=== PATIENT | female | born 1945 | race Caucasian/White ===

== ENCOUNTER → 2017-06-25 | Outpatient (CLI) | payer OTHER ==
[~2017-06-25] MED LIST: ACIDOPHILUS1 EAC2 PO; ALLERCLEAR D-21 EACH PO; ASPIRIN325 PO; HYDRALAZINE 2525 MG PO; HYDROCHLOROTHIA25 M1 PO; ISOSORBIDE DINI30 MG PO; LASIX 40 MG TAB40 M2 PO; LEVAQUIN 500 M500 M2 PO; LEVOTHYROXIN0.025 MG PO; LISINOPRIL20 MG PO; PRED FORTE 1% EY5 M1 OP; PRILOSEC40 MG PO; SERTRALINE HCL50 MG PO; TOPROL XL25 MG PO; XOPENEX HFA15 GM IH
== END ==
LOC: CAT 09:37
DX: R59.0 Localized enlarged lymph nodes (principal)

== ENCOUNTER → 2017-12-13 | Outpatient (CLI) | payer OTHER ==
[~2017-12-13] MED LIST changes: +AMOXICILLIN 50500 MG PO; -LEVOTHYROXIN0.025 MG PO; +NEURONTIN300 MG PO; +NORVASC10 MG PO; +RESTASIS1 EACH OPHTHALMIC; +SYNTHROID100 MC1 PO
== END ==
LOC: CAT 09:05
DX: R91.1 Solitary pulmonary nodule (principal); M48.54XA Collapsed vertebra, not elsewhere classified, thoracic region, initial encounter for fracture; E66.01 Morbid (severe) obesity due to excess calories; G47.33 Obstructive sleep apnea (adult) (pediatric); I27.20 Pulmonary hypertension, unspecified; I50.9 Heart failure, unspecified; I11.0 Hypertensive heart disease with heart failure

== ENCOUNTER → 2018-05-29 | Outpatient (CLI) | payer OTHER ==
[~2018-05-29] VITALS: Ht 165.1 cm; Wt 117.9 kg
[~2018-05-29] MED LIST changes: -AMOXICILLIN 50500 MG PO; -RESTASIS1 EACH OPHTHALMIC
[2018-05-29 13:19] VITALS: BP 177/66
== END ==
LOC: PAIN 06:28
DX: Z09 Encounter for follow-up examination after completed treatment for conditions other than malignant neoplasm (principal); I10 Essential (primary) hypertension; M06.9 Rheumatoid arthritis, unspecified; Z79.899 Other long term (current) drug therapy

== ENCOUNTER → 2018-08-26 | Outpatient (CLI) | payer OTHER ==
[~2018-08-26] MED LIST changes: +AMOXICILLIN 50500 MG PO; +RESTASIS1 EACH OPHTHALMIC
== END ==
LOC: CAT 09:51
DX: R91.8 Other nonspecific abnormal finding of lung field (principal); R59.0 Localized enlarged lymph nodes; R91.1 Solitary pulmonary nodule

== ENCOUNTER → 2018-10-18 | Outpatient (CLI) | payer OTHER ==
[~2018-10-18] VITALS: Ht 165.1 cm; Wt 115.7 kg
--- NOTE | ~2018-10-18 | HPC ---
[facility] [address] [address] PAIN MANAGEMENT CONSULTATION Name: VALDEZ OLMEDO Room #: REG FAIZAJovita Galeano#: [id number] Admission: 10/18/18 Attend Phys: Samuel Casarez MD Discharge: Date of : 49 Report #: [id number] THIS REPORT FOR: //name// CC: Man Casarez DATE OF SERVICE: 10/18/2018 FOLLOWUP COMPLAINT: "Some return of back pain but I had a really good time in [place]." HISTORY: The patient is a 73-year-old female who has been followed in the Pain Clinic. She has had some pain and discomfort in the mid back, in about the area of her bra line. She underwent an injection to the midline area at the last visit. She also had pain and discomfort, which radiated from her right side and radiated around in the T8-T7 distribution. She noticed that after the injection, things went quite well. She was able to go to her 3-week vacation in [place] and on the [place] with a very little pain and discomfort. Overall, things went relatively well. She has noted a slight return of pain and discomfort and would like to consider another injection prior to worsening of her condition. She rates the pain as 3-4/10 at this point. She has been treated with Medrol Dosepak. The patient states that she did have sinus infection. Antibiotic treatment was provided. After the completion of antibiotic, she was put on a steroid regimen. Overall, things are going well and she would like to proceed today with an injection in the mid back area as well as the right lateral T8-T7 dermatomal distribution. ALLERGIES: SULFA, BRAZIL NUTS. CURRENT MEDICATIONS: Amlodipine 10 mg, levothyroxine 100 mcg, Lasix 40 mg, lisinopril 20 mg, Zoloft 50 mg. PAIN CLINIC ASSESSMENT/PQRS: 1. The patient is not being treated for osteoarthritis or rheumatoid arthritis. 2. Height 5 feet 5 inches, weight 255 pounds, BMI is 42.2. 3. Vital signs: Blood pressure 186/88, pulse 66, respiratory rate 16, room air saturation is 99%. 4. Pain intensity: 3-4/10. 5. Fall risk: The patient has not fallen in the last 3 months. 6. Blood thinner: The patient is not on a blood thinning medication. 7. Hypertension: The patient is being treated for hypertension. 8. Opioids greater than 6 weeks: The patient is not on an opioid regimen. 9. Risk assessment tool: Low for opioid use. 10. Functional assessment tool: 35/70. 11. Recreational drug use: The patient denies use of recreational drugs. 12. Tobacco: The patient denies use of tobacco. [address] [address] PAIN MANAGEMENT CONSULTATION Name: VALDEZ OLMEDO [facility] [id number] Admission: 10/18/18 Attend Phys: Samuel Casarez MD Discharge: Date of : 49 Report #: [id number] 13. Alcohol: The patient denies frequent use of alcoholic beverages. PHYSICAL EXAMINATION: GENERAL: The patient is a well-developed, well-nourished, somewhat obese white female. She appears her stated age. She is alert and oriented x 3. Speech is fluent. HEENT: Normocephalic, atraumatic. Extraocular eye muscles intact. Sclerae nonicteric. Hearing is within normal limits. Mucous membranes are moist. NECK: Without adenopathy or JVD. Bruits not appreciated. HEART: Regular rate, S1 and S2. ABDOMEN: Slightly protuberant, without organomegaly. Bowel sounds present. MUSCULOSKELETAL: Without significant scoliosis, kyphosis, or lordosis. Upper extremity muscle strength is judged to be 5/5 for the major muscle groups in the upper extremities. Lower extremity muscle strength is judged to be 5/5 for the major muscle groups in the lower extremities. The patient has pain and discomfort in the area of the bra line, at approximately T7-T8. Palpation in the midline does reproduce her pain and discomfort. Palpation up to the lateral area at T7-T8 can reproduce pain and discomfort, which has been radiating around into the midline area as well. She has some pain and discomfort at approximately T10-T11. Palpation in this area also provided evidence of a trigger point. IMPRESSION: 1. Low back pain with intercostal neuritis on the right at T7-T8. 2. Myofascial pain at the T10-T11 midline area. Recommendations: We discussed treatment options with the patient. Risks and benefits of the procedure were discussed. The patient states that she is over her infection from sinusitis. She is on a steroid medication at this juncture. She has noted some increased pain and discomfort in the back area and would like to proceed with an injection. She noted very good relief with total resolution of 100% for about a month. This allowed her to go on vacation and enjoy her stay in the [facility]. 3. Hypertension. Recommendations: We discussed treatment options with the patient. We will proceed with another injection. Trigger point injections were discussed. Intercostal injection was discussed. Possible complications of the procedure could include infection, increased muscle soreness, no improvement in pain, worsening of pain, pneumothorax with placement of chest tubes to help improve breathing. The patient elects to proceed. PROCEDURE NOTE: The patient was placed in sitting position. She was perpendicular to the table. Her feet rested on a chair. The area at T7-T8 was sterilely prepped with a chlorhexidine solution. This was allowed to dry. Lower to and down below that area, the second trigger point area was noted and a 25-gauge needle was advanced into this area at the T10-T11 area. A total of 8 mL of 0.5% bupivacaine and 40 mg were injected at the T8-T7 area, the midline as well as a paraspinal injection which improved that trigger point area. The [address] [address] PAIN MANAGEMENT CONSULTATION Name: VALDEZ OLMEDO Room #: REG KELVIN Galeano#: [id number] Admission: 10/18/18 Attend Phys: Samuel Casarez MD Discharge: Date of : 49 Report #: [id number] second trigger point at the T11-T10 area was injected. The patient stated this reproduced her discomfort. Left and right paraspinus injection around that area was provided with a 25-gauge needle. This area had been sterilely prepped with a chlorhexidine solution. The right T8-T9 mid thoracic area was palpated. The patient states this reproduced the pain in the intercostal area, which she was experiencing. A 25-gauge needle was then advanced to the T7 rib. It was then walked off 1 mm below the costal margin. Aspiration was negative. A total of 8 mL of 0.5% bupivacaine and 40 mg triamcinolone was injected. The patient tolerated the procedure well. There were no complications. She remained in the Pain Clinic for an appropriate amount of time. She will follow up in the future as needed. We would like to thank you for letting us participate in her care. We hope she continues to improve. She will call us if she notes any problems or concerns about breathing. By: 1047 [id number] Samuel Casarez MD /nt
== END | disposition home or self-care (01) ==
LOC: PAIN 05:49
DX: M79.18 Myalgia, other site (principal); Z88.2 Allergy status to sulfonamides; Z88.8 Allergy status to other drugs, medicaments and biological substances; Z79.899 Other long term (current) drug therapy

== ENCOUNTER 2019-02-03 10:16 | Inpatient (IN) | payer OTHER ==
[~2019-02-03] VITALS: Ht 165.1 cm; Wt 119.3 kg
[2019-02-03 10:16] VITALS: BP 184/60
[~2019-02-03 10:16] MED LIST changes: -SYNTHROID100 MC1 PO; +SYNTHROID25 MC1 PO
[2019-02-03] MEDS ORDERED: BYSTOLIC20 MG PO (10:34)
[2019-02-03 11:44] LABS: ABSOLUTE NEUTROPHILS 14.3 thou/uL (1.4-8.2); BASOPHILS 0.4 % (0.0-2.0); EOSINOPHILS 1.1 % (0.0-3.0); HEMATOCRIT 39.4 % (37.0-47.0); HEMOGLOBIN 13.8 gm/dL (12.0-15.0); LYMPHOCYTES 8.9 % (24.0-44.0); MCH 32.3 pg (26.0-34.0); MCHC 34.9 g/dL (28.0-37.0); MCV 92.6 fL (80.0-100.0); MONOCYTES 6.2 % (1.0-8.0); PLATELET COUNT 288 thou/uL (150-400); POLYS 83.4 % (36.0-66.0); RBC 4.25 mil/uL (4.20-5.00); RDW 13.3 % (10.5-14.5); WBC 17.2 thou/uL (4.0-11.0)
[2019-02-03 11:55] LABS: BE(vivo) 2.1 mmol/L (-2 to +3); HCO3 24.4 mmol/L (22.0-26.0); PCO2 31.4 mmHg (35.0-45.0); PO2 61.6 mmHg (80.0-100.0); pH 7.508 (7.360-7.450); sO2 93.9 % (92.0-98.0)
[2019-02-03 12:54] LABS: ALBUMIN 3.3 g/dL (3.4-5.0); ANION GAP 12 mmol/L (7-16); BUN 12 mg/dL (7-18); CALCIUM 8.9 mg/dL (8.5-10.1); CHLORIDE 101 mmol/L (98-107); CO2 28 mmol/L (21-32); CREATININE 0.8 mg/dL (0.6-1.0); GLUCOSE 131 mg/dL (74-106); MAGNESIUM 1.6 mg/dL (1.8-2.4); SGOT 18 U/L (15-37); SGPT 17 U/L (30-65); SODIUM 141 mmol/L (136-145); TOTAL BILIRUBIN 2.1 mg/dL (<0.1-1.0); TOTAL PROTEIN 7.6 g/dL (6.4-8.2); TROPONIN-I <0.06 ng/mL (<0.06)
[2019-02-03 12:56] LABS: POTASSIUM 2.6 mmol/L (3.5-5.1)
[2019-02-03 13:54] VITALS: BP 162/67
[2019-02-03] MEDS ORDERED: UNICOMPLEX M TA1 TA1 PO (13:55)
[2019-02-03] MEDS ORDERED: PROBIOTIC1 EAC1 PO (13:55)
[2019-02-03] MEDS ORDERED: GLUCOSAMINE HC500 MG PO (13:56)
[2019-02-03] MEDS ORDERED: PROGESTERONE TROCHE SUBLING (13:58)
[2019-02-03 13:59] VITALS: BP 155/80; BP 164/69
[2019-02-03] MEDS ORDERED: KEFLEX500 M1 PO (13:59)
[2019-02-03 14:23] VITALS: BP 178/48
--- NOTE | 2019-02-03 14:46 | EKG ---
[address] [address] ELECTROCARDIOGRAM REPORT Name: VALDEZ OLMEDO Room #: 360- ADM IN M.R.#: [id number] ������������������ Admission: 02/03/19 ������������������ Attend Phys: Nilay Lea MD Discharge: ������������������ Date of : 49 Report #: [id number] ����������������������������������������������������������������� [id number] THIS REPORT FOR: //name// [facility] ED Test Date: 2019-02-03 Test Time: 10:35:23 Pat Name: VALDEZ OLMEDO Department: Room: 360 Gender: F Kiln Stoker: LANE : 1945 Requested By: Karina Coker Order Number: [id number] MD: Alex Garcia Measurements Intervals Mclain Rate: 63 P: 39 WY: 189 QRS: 22 QRSD: 94 T: 57 QT: 556 QTc: 570 Interpretive Statements Sinus rhythm Borderline repolarization abnormality Compared to ECG 12/20/2002 07:56:17 Myocardial infarct finding no longer present Electronically Signed On 02-03-2019 14:46:46 CDT by Alex Garcia [email or web address] ��������������������������������������������� <ELECTRONICALLY SIGNED> ���������������������������������������� By: Alex Garcia MD ��������������������������������������������� 02/03/19 1446 34 Alex Garcia MD /VIRAL
--- NOTE | 2019-02-03 17:18 | NUR ---
NOTIFIED TO REPLACE USGPIV WITH A LARGER ACCESS FOR CT. DISCUSSED MIDLINE PLACEMENT WITH THE PATIENT AND SHE AGREED. A OVER THE WIRE PERFORMED USING STERILE TECHNIQUE. #22 PIV WAS REMOVED AND A #4F POWER INJECTABLE MIDLINE WAS PLACED. 15CM AND ADVANCED WITHOUT DIFFICULTY. LINE WITH EXCELLENT BLOOD RETURN. SECURED AND RELEASED FOR USE
--- NOTE | 2019-02-03 17:44 | NUR ---
Assumed care of Pt on arrival to unit at approx 1400. Pt alert and oriented x4, in mod resp distress with minimal exertion. currently on 4L NC - bilat crackles to auscultation. CT chest results pending. Pulm and cardiology consulted. Sinus on telemetry. one time dose lasix given per order. up w/ SBA to BR. pt progressing toward poc goals.
[2019-02-03 20:00] VITALS: BP 150/67
[2019-02-04 04:10] VITALS: BP 131/69
--- NOTE | 2019-02-04 05:18 | NUR ---
STARTED IVPB ANTIBIOTICS PER POC. PT WAS HAVING BOUTS OF INCONTINENCE AFTER LASIX WAS GIVEN. EXTERNAL FEMALE CATH WAS INITIATED, BUT PT DECIDED TO DISCONTINUE IT. RT STARTED PT ON CPAP FOR SLEEP APNEA AND PLACED CONTINUOS PULSE OX. WATCHED FOR 1 HOUR AND IT WAS DECIDED TO ADD 4 L OF OXYGEN TO CPAP. SAT LEVELS CAME UP TO MID TO HIGH 90'S. PT STILL DISPLAYING SOA WHEN AMBULATING TO BATHROOM.
[2019-02-04 07:35] VITALS: BP 152/74
--- NOTE | 2019-02-04 08:16 | H ---
[facility] [place] [address] HISTORY AND PHYSICAL Name: VALDEZ OLMEDO Room #: 360-P [facility] IN M.R.#: [id number] Admission: 02/03/19 ������������������ Attend Phys: Nilay Lea MD Discharge: ������������������ Date of : 49 Report #: [id number] THIS REPORT FOR: //name// CC: Man Lea DATE OF SERVICE: 02/03/2019 CHIEF COMPLAINT: Shortness of breath. HISTORY OF PRESENT ILLNESS: The patient is a 73-year-old female, who is admitted through the Emergency Room today with progressive shortness of breath and cough and congestion. She said for a number of days to weeks she has had productive cough and chest congestion. She said at times produces yellow to green mucus. She has not had any fever or chills. She was seen in the office last week and had additional blood pressure medicine added and also oral course of Keflex. However, in the last day or two, her symptoms are exacerbated to the point where she had trouble sleeping last night. She normally sleeps with a couple of pillows sitting upright, but she was having difficulty breathing and was taken to the Emergency Room. There, she was noted to have O2 sats around 75% on room air. She normally does not require home oxygen, but does wear CPAP for sleep apnea. She also reported last week weight gain with lower extremity edema. She said in the office she was weighed around 263, but here in the ER at 239. She did report increasing lower extremity edema last week and that is when she doubled her Lasix. She said this improved her edema, but did not change her breathing pattern or dyspnea symptoms. PAST MEDICAL HISTORY: Hypertension; obstructive sleep apnea, on CPAP; morbid obesity; history of acute diastolic congestive heart failure in 2016; history of pulmonary hypertension by echo. PAST SURGICAL HISTORY: She has had hysterectomy and breast biopsies. FAMILY HISTORY: Noncontributory. SOCIAL HISTORY: No chronic alcohol or tobacco use. She is , lives at home. ALLERGIES: SULFA, GABAPENTIN, and some food allergies. MEDICATIONS: Zoloft 50 mg; lisinopril 40 mg twice a day; Levoxyl 25 mcg; Bystolic 20 mg; Lasix 40 mg, she recently increased to 80 mg and amlodipine [address] [address] HISTORY AND PHYSICAL Name: VALDEZ OLMEDO Room #: [address] [place] [address] [place] ..#: [id number] Admission: 02/03/19 ������������������ Attend Phys: Nilay Lea MD Discharge: ������������������ Date of : 49 Report #: [id number] REVIEW OF SYSTEMS: She denies headache, chest pain, nausea, vomiting, diarrhea, constipation, dysuria, syncope. OBJECTIVE: VITAL SIGNS: Temperature 36.6, pulse 54, respirations 28, blood pressure 178/48, O2 sat 91-94% on 4 liters nasal cannula. GENERAL: She is awake and alert, in no distress. HEAD AND NECK: Unremarkable. LUNGS: Have some expiratory rhonchi in the right middle lobe posteriorly. HEART: Regular, no murmur. ABDOMEN: Obese, soft, normoactive bowel sounds. EXTREMITIES: Just trace edema. NEUROLOGIC: Cranial nerves intact. Speech is fluent. Motor strength 5/5 throughout. LAB REVIEW AND DIAGNOSTIC STUDIES: Potassium was 2.6, magnesium 1.6. Troponin negative. BNP was 2100. ABG had a pO2 of 61 on 3 liters nasal cannula. White count is 17 with mild left shift. Chest x-ray shows perihilar and upper lobe infiltrates. ASSESSMENT: 1. Community-acquired pneumonia. 2. Electrolyte imbalance. 3. Hypertension. 4. Obstructive sleep apnea, on CPAP. 5. Pulmonary hypertension. PLAN: Empiric antibiotic treatment has been ordered for presumptive pneumonia; however, she has a complex picture and there could be some degree of superimposed heart failure as well. However, given the productive cough and elevated white count, antibiotics will continue. I will ask the Pulmonary and Cardiology Service to see her as well; given the degree of hypoxia, should rule out pulmonary embolus and for now, Lovenox DVT prophylaxis has been ordered. ��������������������������������������������� <ELECTRONICALLY SIGNED> ���������������������������������������� By: Nilay Lea MD ��������������������������������������������� 02/04/19 0816 1444 1727 Nilay Lea MD /nt
--- NOTE | 2019-02-04 09:22 | 2DMMODE ---
[facility] [place] [address] 2 D/M-MODE ECHOCARDIOGRAM Name: VALDEZ OLMEDO Room #: 360-P [facility] IN ..#: [id number] ������������� Admission: 02/03/19 ������������� Attend Phys: Charisse Giraldo Discharge: ��� ������������� ��� Date of : 49 Date of Service: 02/04/19 0922 �� Report #: [id number] �������� ��������������������������������������������[id number] THIS REPORT FOR: //name// APPROVED REPORT Study performed: 02/04/2019 08:20:56 EXAM: Comprehensive 2D, Doppler, and color-flow Echocardiogram Patient Location: Echo lab Room #: 360 Status: routine BSA: 2.22 HR: 62 bpm BP: 152/74 mmHg Rhythm: NSR Other Information Study Quality: Adequate Technically limited study due to morbid obesity. Indications Dyspnea Chest Pain Pulmonary HTN, CHF. Echo Enhancing Agent Indication: Endocardial border delineation Agent(s) / Amount(s) Used: Optison 5 cc 2D Dimensions RVDd: 35.53 mm IVSd: 11.03 (7-11mm) LVOT Diam: 20.12 (18-24mm) LVDd: 48.50 mm PWd: 10.10 (7-11mm) LVDs: 33.46 (25-40mm) Aortic Root: 34.08 mm Volumes Left Atrial Volume (Systole) Single Plane 4CH: 56.53 mL Single Plane 2CH: 46.67 mL LA ESV Index: 24.00 mL/m2 Aortic Valve AoV Peak Blake.: 2.77 m/s [facility] [place] [address] 2 D/M-MODE ECHOCARDIOGRAM Name: VALDEZ OLMEDO Room #: 360-P [facility] IN .R.#: [id number] ������������� Admission: 02/03/19 ������������� Attend Phys: Charisse Giraldo Discharge: ��� ������������� ��� Date of : 49 Date of Service: 02/04/19 0922 �� Report #: [id number] �������� ��������������������������������������������[id number] AO Peak Gr.: 30.72 mmHg LVOT Max P.24 mmHg AO Mean Gr.: 16.13 mmHg AO V2 Mean: 1.91 m/s LVOT Max V: 1.68 m/s AO V2 VTI: 67.02 cm ISSAC Vmax: 1.92 cm2 Mitral Valve E/A Ratio: 1.4 MV Decel. Time: 159.40 ms MV E Max Blake.: 1.53 m/s MV A Blake.: 1.11 m/s MV PHT: 46.23 ms IVRT: 48.44 ms Pulmonary Valve PV Peak Blake.: 1.24 m/s PV Peak Gr.: 6.18 mmHg Pulmonary Vein P Vein S: 0.82 m/s P Vein A: 0.34 m/s P Vein D: 0.86 m/s P Vein A Dur.: 93.4 msec P Vein S/D Ratio: 0.95 Tricuspid Valve TR Peak Blake.: 3.36 m/s RAP Estimate: 5.00 mmHg TR Peak Gr.: 45.21 mmHg PA Pressure: 50.00 mmHg Left Ventricle The left ventricle is normal size. There is normal LV segmental wall motion. There is normal left ventricular wall thickness. Left ventricular systolic function is normal. LVEF is 60-65%. Right Ventricle The right ventricle is normal size. The right ventricular systolic function is normal. Atria The left atrium size is normal. The right atrium size is normal. Aortic Valve Aortic valve is mildly calcified, mildly stenotic. No aortic regurgitation is present. Calculated aortic valve area is 1.9cm2 with maximum pressure gradient of 31 mmHg and mean pressure gradient of 16 [place] [address] 2 D/M-MODE ECHOCARDIOGRAM Name: CM OLMEDOMONAE Mariscal Room #: 360-P [facility] IN ..#: [id number] ������������� Admission: 02/03/19 ������������� Attend Phys: Charisse Giraldo Discharge: ��� ������������� ��� Date of : 49 Date of Service: 02/04/19 0922 �� Report #: [id number] �������� ��������������������������������������������[id number] Mitral Valve The mitral valve is normal in structure. Mild mitral regurgitation. Tricuspid Valve The tricuspid valve is normal in structure. Mild tricuspid regurgitation. Estimated PAP is 50-55mmHg. Pulmonic Valve Pulmonic valve is not well visualized. Trace pulmonic regurgitation. Great Vessels The aortic root is normal in size. Ascending aorta is not well visualized. IVC is borderline dilated and collapses 50% with inspiration. Pericardium There is no pericardial effusion. <Conclusion> Left ventricular systolic function is normal. There is normal LV segmental wall motion. LVEF is 60-65%. Aortic valve is mildly calcified, mildly stenotic. No insufficiency Calculated aortic valve area is 1.9cm2 with maximum pressure gradient of 31 mmHg and mean pressure gradient of 16 mmHg. The mitral valve is normal in structure. Mild mitral regurgitation. Mild tricuspid regurgitation. Estimated pulmonary artery pressure of 50-55mmHg. There is no pericardial effusion. ��������������������������������������������� <ELECTRONICALLY SIGNED> ���������������������������������������� By: Gordon Sy MD, FACC ��������������������������������������������� 02/04/19921 1 1 Gordon Sy MD, FACC /INF
--- NOTE | 2019-02-04 10:14 | NUR ---
assessment: CM REVIEWED CHART AND MET WITH THE PATIENT AT THE BEDSIDE. PT IS ALERT AND ORIENTED X4. PT WAS ADMITTED WITH CAP/DYSPNEA/HYPOXIA. PT REPORTS SHE LIVES IN A HOUSE WITH HER . PT REPORTS SHE HAS ABOUT 6 STEPS WITH HANDRAILS TO ENTER THE HOME AND ANOTHER 6 STEPS WITH HANDRAILS TO HER BEDROOM ONCE INSIDE. PT REPORTS BEING FULLY INDEPENDENT WITH ADLS AND AMBULATION. PT REPORTS HAVING A CPAP AT HOME BUT NO OXYGEN. PT STATES SHE HAS NOT HAD HH IN THE PAST NOR BEEN TO A SNF/ACUTE REHAB. CM DISCUSSED ROLE. PT DOES NOT ANTICIPATE HAVING ANY NEEDS AT DISCHARGE. PULMONARY AND CARDIOLOGY WERE CONSULTED TO SEE PATIENT. CM WILL CONTINUE TO FOLLOW TO ASSIST NEEDED.
[2019-02-04 11:10] VITALS: BP 136/59
[2019-02-04 12:02] LABS: HEMATOCRIT 37.8 % (37.0-47.0); MCH 31.7 pg (26.0-34.0); MCHC 34.4 g/dL (28.0-37.0); MCV 92.1 fL (80.0-100.0); RBC 4.11 mil/uL (4.20-5.00); RDW 12.7 % (10.5-14.5); WBC 14.8 thou/uL (4.0-11.0)
[2019-02-04 12:10] LABS: CALCIUM 8.9 mg/dL (8.5-10.1); CREATININE 0.9 mg/dL (0.6-1.0)
[2019-02-04 12:14] LABS: POTASSIUM 2.6 mmol/L (3.5-5.1)
[2019-02-04 15:45] VITALS: BP 137/65
--- NOTE | 2019-02-04 17:35 | NUR ---
AAAOX4 VERY PLEASANT AND COOPERATIVE. NO C/O PAIN OR DISCOMFORT. APPETITE IMPROVING AT APPROX 50% OF MEALS. IV RIGHT UPPER MIDLINE SALINE LOCKED. UAL IN ROOM WITH SLOW STEADY GAIT. 02 AT 4L NASAL CANULA. HAD ECHO DONE TODAY. SPOUSE WAS INTO VISIT.
[2019-02-04 20:00] VITALS: BP 155/80
[2019-02-05 03:50] VITALS: BP 140/79
[2019-02-05 05:25] LABS: HEMATOCRIT 36.9 % (37.0-47.0); HEMOGLOBIN 12.5 gm/dL (12.0-15.0); MCH 31.3 pg (26.0-34.0); MCHC 33.8 g/dL (28.0-37.0); MCV 92.6 fL (80.0-100.0); RBC 3.98 mil/uL (4.20-5.00); RDW 12.9 % (10.5-14.5); WBC 23.1 thou/uL (4.0-11.0)
[2019-02-05 05:39] LABS: CALCIUM 8.9 mg/dL (8.5-10.1); CREATININE 0.9 mg/dL (0.6-1.0)
[2019-02-05 05:44] LABS: POTASSIUM 2.7 mmol/L (3.5-5.1)
[2019-02-05 07:21] VITALS: BP 152/67
--- NOTE | 2019-02-05 07:30 | NUR ---
Received pt. on 3L/NC then had CPAP on all night. She requested ambien to help her sleep and stated this am she slept well last night. Denies any pain. Afebrile. Up ad hailee in room with steady gait. Critical K level of 2.[address] Lea and order received. First dose of potassium given to pt. Day RN updated. Sputum and urine sample sent to lab. Will continue to monitor.
[2019-02-05 11:08] LABS: IgA 341 mg/dL (64-422); IgG 774 mg/dL (700-1600); IgM 133 mg/dL (26-217)
--- NOTE | 2019-02-05 11:38 | HC ---
[facility] [place] [address] CONSULTATION Name: SHARAVALDEZ D Room #: 360-P [facility] IN M.R.#: [id number] Admission: 02/03/19 ������������������ Attend Phys: Nilay Lea MD Discharge: ������������������ Date of : 49 Report #: [id number] THIS REPORT FOR: //name// CC: Man Lea Infectious Diseases Consultation REASON FOR CONSULTATION: I was asked to evaluate concerning bilateral pulmonary infiltrates. HISTORY OF PRESENT ILLNESS: The patient was a 73-year-old, presents with a 2-week history of progressive shortness of breath associated with minimally productive cough. Initially was seen in the outpatient clinic where she was hypertensive. She was given a beta johnny. She had significant amount of peripheral edema, which was also addressed. She continues to have cough and progressive shortness of breath. She was placed on cephalexin for 3 days without improvement. Presents to the emergency room where she has bilateral pulmonary infiltrates. CT scan of the chest confirms this. She does have a history of obstructive sleep apnea. In addition, she has an EF of 60% with mild aortic and mitral regurgitation. She has been followed by pulmonary medicine and cardiovascular medicine. She has had one episode of pneumonia several years ago. Does not have any previous history of HIV or risk factors, chronic bronchitis. She has had no ischemic heart disease noted. She has had no travel outside the [place]. No other known exposures. She is retired and lives with her . She has had no respiratory issues. She has had no animal exposure. No other chemical exposure. REVIEW OF SYSTEMS: A 10-point review of systems was negative other than what is described above. ALLERGIES: SULFA, GABAPENTIN, BRAZIL NUTS. MEDICATIONS: As noted on MAR including ceftriaxone, azithromycin, Solu-Medrol. PAST MEDICAL HISTORY: Heart disease, hyperlipidemia, obesity, obstructive sleep apnea, gastroesophageal reflux, hypothyroidism, hysterectomy, score exploratory laparotomy. FAMILY HISTORY: Heart disease, diabetes, hypertension, thyroid disease. SOCIAL HISTORY: She is a past smoker, no significant alcohol intake. PHYSICAL EXAMINATION: VITAL SIGNS: She is afebrile. Maximum temperature was 100 degrees yesterday, heart rate 62 on 3 L of oxygen per nasal cannula, blood pressure 137/65. GENERAL: She was moderately obese. Skin was without rash or decubitus. No [address] [address] CONSULTATION Name: VALDEZ OLMEDO Room #: 360-[facility] IN M.R.#: [id number] Admission: 02/03/19 ������������������ Attend Phys: Nilay Lea MD Discharge: ������������������ Date of : 49 Report #: [id number] palpable adenopathy. HEENT: Eyes: Without scleral icterus or conjunctivitis. Mouth: Without mucositis. NECK: Supple, with no thyromegaly, JVD or mass. LUNGS: Posterior crackles with no consolidation. No rub. HEART: Regular, without murmur, gallop or rub. ABDOMEN: Soft, nontender, no hepatosplenomegaly or mass, trace peripheral edema, no cyanosis or clubbing. GENITAL AND RECTAL: Not performed. Cranial nerves intact. Strength in upper or lower extremities is normal. Mood normal. No sensory deficits noted. LABORATORY STUDIES: Influenza antigen negative. Creatinine 0.9, hemoglobin 13, WBC 14.8, platelet count 321,000. Sedimentation rate was 63. BNP 21,000. Lactate 3. IMAGING DATA: CT scan of the chest showed evidence of cardiomegaly along with bilateral pulmonary infiltrates, both ground glass and nodular in appearance. Bilateral pleural effusions. Mediastinal adenopathy and hilar adenopathy. Fatty infiltration of the liver. IMPRESSION: 1. A 73-year-old with bilateral pulmonary infiltrates, mediastinal hilar adenopathy, cardiomyopathy, mild, with evidence of bilateral pulmonary infiltrates, may be related to congestive heart failure versus pneumonitis. 2. Hypertension. 3. Obstructive sleep apnea. 4. Obesity. RECOMMENDATION: We will obtain workup for infectious etiology, as well as inflammatory causes and vasculitis. Treat for congestive heart failure. Continue antibiotic coverage with azithromycin, ceftriaxone, and Tamiflu pending further studies. I have discussed with pulmonary medicine. We will plan on bronchoscopy tomorrow for further evaluation. ��������������������������������������������� <ELECTRONICALLY SIGNED> ���������������������������������������� By: Bebeto Maria MD ��������������������������������������������� 02/05/19 1138 1746 [id number] Bebeto Maria MD /nt
[2019-02-05 11:44] VITALS: BP 148/72
--- NOTE | 2019-02-05 11:46 | NUR ---
care of pt assumed this am @ ~0700. pt awake and off her cpap (noc use only) and on 3lt nc. pt npo for anticipated bronchoscopy @ 1400 today. pt had am meds w/ sips of water. pt denies co pain, soa and no n/v/d today. pt up ad hailee w/ a steady, balanced and coordinated gait. iv access to rue midline. potassium replaced today. cardiac care rn at consulting w/ pt this am. report called to pre-op rn for bronchoscopy. pt denies a cough this am.
[2019-02-05 15:55] LABS: CLARITY CLOUDY; COLOR DARK PINK; SOURCE BRONCH RML; TOTAL VOLUME 10 mL
[2019-02-05 16:09] LABS: HIV ANTIBODY Non Reactive (Non Reactive)
[2019-02-05 16:10] LABS: BF NUCLEATED CELLS 336; BF RBC 16192
[2019-02-05 16:43] VITALS: BP 136/59
[2019-02-05 17:04] LABS: BF MACROPHAGE 48; BF NEUTROPHILS 40
[2019-02-05 19:33] VITALS: BP 138/59
[2019-02-06 04:11] VITALS: BP 144/65
[2019-02-06 07:25] LABS: HEMATOCRIT 34.3 % (37.0-47.0); HEMOGLOBIN 11.5 gm/dL (12.0-15.0); MCH 31.3 pg (26.0-34.0); MCHC 33.4 g/dL (28.0-37.0); MCV 93.5 fL (80.0-100.0); RBC 3.67 mil/uL (4.20-5.00); RDW 13.3 % (10.5-14.5); WBC 18.8 thou/uL (4.0-11.0)
[2019-02-06 07:35] LABS: CALCIUM 8.9 mg/dL (8.5-10.1); CREATININE 0.8 mg/dL (0.6-1.0); POTASSIUM 3.8 mmol/L (3.5-5.1)
[2019-02-06 07:49] VITALS: BP 149/72
--- NOTE | 2019-02-06 07:49 | NUR ---
Pt. requested sleep med last night. She stated this am she slept better. O2 at 3L/NC then CPAP at HS. She still gets short of breath with exertion. Denies being in pain. Afebrile. Up ad hailee in room with steady gait. Making progress towards care plan goals.
--- NOTE | 2019-02-06 09:12 | NUR ---
Nutrition: Pt admitted for CAP, seen for BMI 43.8 = class III obesity. Appetite is okay with >75% intake. UBW around 250 lbs, admission wt 263 lbs. Edema present. Wt stable since 2016 per EMR. BG 145-214. No hx of DM, may be due to methylprednisolone. On Lispro. Answered questions about heart healthy/low sodium diet. Low nutrition risk.
[2019-02-06 11:55] VITALS: BP 135/56
--- NOTE | 2019-02-06 13:29 | NUR ---
Recieved care of patient at 0700. Alert and oriented x4. No complaints of pain or discomfort. Complaints of diarrhea and was told to inform nurse of next BM for inspection. On 3L O2/NC and CPAP at HS. Does not use O2 at home. Does use CPAP at home. Up ad hailee in room with steady, balanced gait. Short of breath with exertion. Vital signs within normal limits. Placed on Contact precuations for Tamiflu treatment. Waiting for RVP results. Pt currently at bedside.
--- NOTE | 2019-02-06 14:06 | NUR ---
ON-GOING ASSESSMENT: PT IS SLOWLY PROGRESSING TOWARDS DISCHARGE GOALS. PT HAD BRONCH YESTERDAY AND IS STILL WHEEZING TODAY AND REQUIRING OXYGEN WHICH SHE DOES NOT HAVE ARRANGED AT HOME. PT REMAINS ON IV ANBX. CM WILL CONTINUE TO FOLLOW TO ASSIST NEEDED.
[2019-02-06 15:36] VITALS: BP 140/54
[2019-02-06 20:45] VITALS: BP 143/55
[2019-02-07 00:08] LABS: ANGIOTENSIN CONVERTNG ENZ < 15 U/L (14-82)
--- NOTE | 2019-02-07 05:04 | NUR ---
Pt. requested tylenol for mild headache due to coughing with good relief. She stated she slept well during the night. O2 at 3L/NC then CPAP all night while asleep. Droplet precaution maintained. Afebrile. Up ad hailee in room with steady gait. Progressing towards care plan goals.
[2019-02-07 05:31] VITALS: BP 151/68
[2019-02-07 07:16] LABS: HEMATOCRIT 34.2 % (37.0-47.0); HEMOGLOBIN 11.4 gm/dL (12.0-15.0); MCH 31.4 pg (26.0-34.0); MCHC 33.3 g/dL (28.0-37.0); MCV 94.5 fL (80.0-100.0); RBC 3.62 mil/uL (4.20-5.00); RDW 13.3 % (10.5-14.5); WBC 14.6 thou/uL (4.0-11.0)
[2019-02-07 07:23] LABS: CREATININE 0.8 mg/dL (0.6-1.0); POTASSIUM 3.8 mmol/L (3.5-5.1)
[2019-02-07 07:51] VITALS: BP 131/99
[2019-02-07 11:39] VITALS: BP 144/60
--- NOTE | 2019-02-07 12:54 | NUR ---
on-going assessment: cm reviewed CHART AND SPOKE WITH ATTENDING. PT IS SLOWLY PROGRESSING TOWARDS DISCHARGE GOALS. PT IS STILL WHEEZING AND REQUIRING OXYGEN WHICH SHE DOES NOT HAVE AT HOME. CM SPOKE WITH ATTENDING AND NO PLANS FOR WEEKEND DISCHARGE. CM WILL CONTINUE TO FOLLOW TO ASSIST NEEDED.
[2019-02-07 13:11] LABS: ANA INTERPRETATION Negative (Negative)
--- NOTE | 2019-02-07 15:26 | NUR ---
REFERRAL RECEIVED FOR ACUTE REHAB CONSULATION. PATIENT SEEN BY RAUDEL AGUILLON NP FOR DR. LEE. PATIENT DOES NOT MEET CRITERIA FOR ACUTE REHAB ADMISSION - TOO HIGH LEVEL. PATIENT SHOULD BE ABLE TO RETURN TO HOME WITH HOME HEALTH OR OUT PATIENT IF NEEDED. THANK YOU FOR THIS REFERRA.
[2019-02-07 15:28] VITALS: BP 149/61
[2019-02-07 17:09] LABS: GLOBULIN TOTAL 3.4 g/dL (2.2-3.9); M-SPIKE Not Observed g/dL (Not Observed)
[2019-02-07 18:10] LABS: ADENOVIRUS Negative (Negative); INFLUENZA A Negative (Negative); INFLUENZA B Negative (Negative); METAPNEUMOVIRUS Negative (Negative); PARAINFLUENZA 1 Negative (Negative); PARAINFLUENZA 2 Negative (Negative); PARAINFLUENZA 3 Negative (Negative); RHINOVIRUS Negative (Negative); RSV A Negative (Negative); RSV B Negative (Negative)
--- NOTE | 2019-02-07 18:49 | NUR ---
Assumed care of patient at 0700. Vitals have been stable. Maintaining oxygen saturations on 3L NC. Still SOB with exertion. Cpap at HS. Lasix given x1 today with good effect. Good urinary output. Remains in droplet isolation, as still receiving Tamiflu and pending RVP results. No complaints of pain today. Up ad hailee in room, steady gait. PT / OT ordered per Dr. Kelton Maria. Does not qualify for 5N rehab. Plan to stay throughout the weekend. at bedside today. Slowly progressing towards POC. Will continue to monitor.
[2019-02-07 20:00] VITALS: BP 144/43; BP 152/63
[2019-02-08 04:00] VITALS: BP 142/56
--- NOTE | 2019-02-08 05:26 | NUR ---
PATIENT IS PROGRESSING IN HER CARE PLAN. VITAL SIGNS STABLE WITH PATIENT HAVING NO COMPLAINTS OF PAIN OR NAUSEA. BREATHING STABLE ON NASAL CANNULA/CPAP EVIDENCED BY READINGS ON CONTINUOUS SATURATION MONITOR. PATIENT REMAINS ON ISOLATION TO RULE OUT INFLUENZA WITH NURSING STAFF AWAITING LAB RESULTS. UP AD LAB THROUGHOUT SHIFT INCIDENT FREE, PATIENT IS STRONG AND BALANCED WHEN AMBULATING. CONTINUE PLAN OF CARE.
[2019-02-08 08:14] VITALS: BP 146/51
[2019-02-08 11:30] VITALS: BP 141/53
[2019-02-08 15:32] VITALS: BP 129/63
--- NOTE | 2019-02-08 18:06 | NUR ---
ASSUMED PATIENT CARE AT 0700. A/O X4. AMBULATED IN ROOM. DENIES PAIN. PROGRESSING TOWARDS POC GOALS.
[2019-02-08 19:16] VITALS: BP 143/52
[2019-02-09 04:19] VITALS: BP 147/66
--- NOTE | 2019-02-09 06:07 | NUR ---
PATIENT IS PROGRESSING RAPIDLY IN CARE PLAN. VITAL SIGNS STABLE WITH PATIENT HAVING NO COMPLAINTS OF PAIN OR NAUSEA. BREATHING STABLE ON OXYGEN EVIDENCED BY READINGS ON CONTINUOUS SAT MONITOR AND SPOT OXYGENATION CHECKS. PATIENT TOLERATED CPAP FINE OVERNIGHT. FULLY ORIENTED, PATIENT IS ABLE TO CALL APPROPRIATELY FOR NEEDS AND PARTICIPATE IN CARE. UP AD LING THROUGHOUT SHIFT, PATIENT IS STRONG AND BALANCED WHEN WALKING. CONTINUE PLAN OF CARE.
[2019-02-09 07:31] VITALS: BP 187/79
[2019-02-09 11:22] VITALS: BP 178/76
--- NOTE | 2019-02-09 16:41 | NUR ---
CONT TO IMPROVE SIGNIFICANTLY TODAY. STILL NEEDING OXYGEN BUT ONLY A LITER. SHE IS DENIES PAIN. SHE IS ALERT. AMBULATED ABOUT FACILITY WITHOUT ANY DIFFICULTY. UP AD LING IN ROOM. CONT ON IV ABT AND NO ADVERSE EFFECTS NOTED. WILL CONT WITH PLAN OF CARE.
[2019-02-09 17:00] VITALS: BP 168/74
[2019-02-09 19:45] VITALS: BP 172/62
[2019-02-10 03:50] VITALS: BP 145/65
--- NOTE | 2019-02-10 05:04 | NUR ---
PATIENT IS PROGRESSING RAPIDLY IN HER CARE PLAN. VITAL SIGNS STABLE WITH PATIENT HAVING NO COMPLAINTS OF PAIN OR NAUSEA. BREATHING STABLE EVIDENCED BY READINGS ON CONTINUOUS SATURATION MONITOR AND SPOT OXYGENATION CHECKS. PATIENT REMAINS ON ONE LITER NASAL CANNULA. SHE WAS ABLE TO TOLERATE CPAP FOR MOST OF THE NIGHT. UP AD LING THROUGHOUT SHIFT WITHOUT INCIDENT, PATIENT APPEARS STRONG AND BALANCED WHEN AMBULATING. PATIENT IS ANXIOUS FOR POSSIBLE DISCHARGE SOON. CONTINUE PLAN OF CARE.
[2019-02-10 06:08] LABS: CALCIUM 8.9 mg/dL (8.5-10.1); CREATININE 0.8 mg/dL (0.6-1.0); MAGNESIUM 2.5 mg/dL (1.8-2.4); POTASSIUM 3.3 mmol/L (3.5-5.1)
[2019-02-10 07:36] VITALS: BP 150/53
--- NOTE | 2019-02-10 12:06 | PATH ---
[facility] [address] [place] [address] PATHOLOGY RPT PROCEDURE Name: VALDEZ OLMEDO Room #: 360-P ADM IN .R.#: [id number] ������������������ Admission: 02/03/19 ������������������ Date of : 49 Discharge: Report #: [id number] Path Case #: [id number] Note [facility] Accession Number: [id number] TESTS RESULT FLAG UNITS REF RANGE LAB Clinician Provided Cytology Information No. of containers..01 Other (Miscellaneous) Source: BAL RML DIAGNOSIS: BAL RML NEGATIVE FOR MALIGNANT CELLS. NORMAL BRONCHIAL CELLS AND MACROPHAGES ARE PRESENT. Pathologist ICD10: 02 A41.9 Signed out by: Arlyn Earl MD, Pathologist NPI- [id number] Performed by: 01 Jacqueline Granda, Seeing Eye Dog Trainer ([facility]) Gross description: 01 5ML, DARK PINK, CLOUDY /LCS FLAG LEGEND: L-Low Normal,H-High Normal,LL-Alert Low,HH-Alert High <-Panic Low,>-Panic High,A-Abnormal,AA-Critical Abnormal Performed at: [address] [place] [address] Junior Moore MD, [address] [address] Arlyn Earl MD, Specimen Comment: A courtesy copy of this report has been sent to Specimen Comment: [phone], , . Specimen Comment: Report sent to ,DR PLAZA / DR LOMAS Specimen Comment: A duplicate report has been generated due to demographic updates. Performed at: [address], [place], [place] [id number] MD Junior Moore MD Phone: [phone]
--- NOTE | 2019-02-10 15:32 | NUR ---
on-going assessment: cm reviewed chart. PT IS SLOWLY PROGRESSING TOWARDS DISCHARGE GOALS. PT IS BEING TESTED TO SEE IF SHE WILL NEED OXYGEN AT HOME. PLAN IS FOR PATIENT TO LIKELY DISCHARGE TOMORROW. CM WILL CONTINUE TO FOLLOW TO ASSIST NEEDED.
[2019-02-10 16:13] VITALS: BP 145/56
--- NOTE | 2019-02-10 18:31 | NUR ---
PATIENT TRANSFERED TO SENIOR SUITE AT THIS TIME. SHE IS ALERT ORIENTED X4. SHE DENIES PAIN. ON ROOM AIR AND SATS ARE GREATER THAN 94%. WILL SPEND THE NIGHT HERE ON CPAP ROOM AIR SATS MONITOR. WILL CONT WITH PLAN OF CARE.
[2019-02-10 20:07] VITALS: BP 159/75
--- NOTE | 2019-02-11 04:20 | NUR ---
Assumed pt care at 1900. Pt A/OX4,VSS.Denies pain on assessment. No c/o SOA,does have a non productive cough.Pt resting with CPAP in place nocturnal desat study on going and pt has had no problems desating so far. Pt is up ad hailee, did complete her shower independtly before going to bed. Has a midline on RUE,patent and flushes well with blood return noted. Resting quietly at this time no distress noted will continue to monitor pt.
[2019-02-11 08:00] VITALS: BP 166/76
[2019-02-11 08:08] VITALS: BP 159/75
[2019-02-11] MEDS ORDERED: CEFDINIR300 MG PO (09:54)
[2019-02-11] MEDS ORDERED: AZITHROMYCIN 2250 MG PO (09:55)
[2019-02-11] MEDS ORDERED: PREDNISONE 20 M20 MG PO (09:56)
[2019-02-11] MEDS ORDERED: POTASSIUM20 PO (10:00)
--- NOTE | 2019-02-11 11:11 | NUR ---
PATIENT CARE WAS ASSUMED AT 0715.PATIENT IS ALERT AND ORIENTED X4.PATIENT IS UP ABLIB.PT HAS NON PRODUCTIVE COUGH, ON ROOM AIR.PT USES CPAP AT NIGHT.STUDYS WERE DONE TO SEE IF O2 IS NEED IN CPAP WHILE PATIENT IS SLEEPING.PT HAS NO COMPLAINS OF PAIN AT THIS TIME.IV MIDLINE IS INTACT AND SALINE LOCKED.PT HAS EDEMA IN BOTH LEGS, THAT IS A 1 PLUS PITTING.CALL LIGHT,PHONE, AND PERSONAL BELONGINGS ARE WITHIN REACH.
[2019-02-11 11:32] VITALS: BP 166/76
--- NOTE | 2019-02-11 13:07 | NUR ---
GLASS EDGER FAXED TO [facility]- COPY OF SCRIPT FOR HOME OXYGEN, H AND P, FACE SHEET, PULMONARY CONSULT, AND REST/EX OMITRY.
--- NOTE | 2019-02-11 13:28 | NUR ---
DISCHARGE NOTE: BETZAIDA reviewed chart and spoke with nursing and attending physician. Rest/exercise oximetry completed. Pt does need 2L O2 with activity. SW notified [facility] liaison, who states they are unable to provide O2 to pt. Recommendation made to use another DME company. Clinical info and order faxed to [facility] by transit planner. BETZAIDA obtained script and faxed to [facility]. BETZAIDA notified [facility] liaison, who delivered portable tank to pt's room. Pt's family to provide transportation home. [facility]'s discharge summary. No additional SW needs identified at this time, but is available to assist should needs arise.
--- NOTE | 2019-02-11 14:56 | NUR ---
PATIENT WAS DISCHARGED TO GO HOME WITH SELF CARE.MIDLINE WAS TAKEN OUT.DISCHARGE PAPERS WERE GIVEN TO PATIENT WITH PRESCRIPTIONS, AND EDUCATION.TRANSPORTATION TOOK PATIENT OUT TO FAMILY CAR.PT HAS NO QUESTIONS AT THIS TIME.
--- NOTE | 2019-02-14 11:39 | D ---
[facility] [place] [address] DISCHARGE SUMMARY Name: SHARAVALDEZ D Room #: 225-P [facility] IN ..#: [id number] Admission: 02/03/19 ������������������ Attend Phys: Nilay Lea MD Discharge: 02/11/19 ������������������ Date of : 49 Report #: [id number] THIS REPORT FOR: //name// CC: Man Lea DATE OF SERVICE: 02/11/2019 FINAL DIAGNOSES: 1. Acute hypoxic respiratory failure. 2. Community-acquired pneumonia. 3. Acute lung injury. 4. Tracheobronchomalacia. 5. Hypertension. 6. Acute on chronic diastolic congestive heart failure. 7. Pulmonary hypertension. 8. Morbid obesity. 9. Obstructive sleep apnea. 10. Hypothyroidism. HOSPITAL COURSE: The patient was admitted with severe hypoxic respiratory failure with room air sats in the 70s. She required high flow oxygen and steroids, nebulized treatments and empiric antibiotics for community-acquired pneumonia. She was followed by the Cardiology, Pulmonary and ID services. She was treated for acute on chronic diastolic heart failure. Multiple cultures were obtained, which were all negative at the time of discharge. There were some viral cultures and bronchoscopy cultures were still pending at discharge. She had a CT that showed no PE, but there were some CT findings of possible idiopathic interstitial lung disease or possible acute lung injury due to infection. With medical treatment, she gradually improved and her oxygen requirements improved significantly. By the time of discharge, she was only requiring about 1 liter of oxygen. She had no other interval complication. DISPOSITION: She will be discharged to home with diet and activity as tolerated. Follow up with Dr. Maria and Dr. Becerra in 2 weeks. MEDICATIONS: Omnicef for 5 days, Zithromax for 5 days, prednisone 20 mg twice a day until she returns to the office, potassium 20 mEq b.i.d., Zoloft, lisinopril, Lasix 80 mg a day, Levoxyl, amlodipine, multivitamin, acidophilus. She is to come by the office for a BMP in 2 days. ��������������������������������������������� <ELECTRONICALLY SIGNED> ���������������������������������������� By: Nilay Lea MD ��������������������������������������������� 02/14/19 1139 1019 Nilay Lea MD /nt
== END 2019-02-11 14:52 | disposition home or self-care (01) | DRG 291 ==
LOC: ER 10:16 → 3W 13:31 → EROBS 13:31 → 3W 14:00 → SICU 02-10 19:53 → ENTRNSPT 02-11 14:05 → EDTRNSPTSTS 02-11 14:11 → SICU 02-11 14:52
PROVIDERS: Internal Medicine; Pediatrics; Physician Assistant; Specialist; ADMIT Internal Medicine Geriatric Medicine
PROC: 05HY33Z Insertion of Infusion Device into Upper Vein, Percutaneous Approach (ICD-10-PCS; principal; 2019-02-03)
PROC: 5A09357 Assistance with Respiratory Ventilation, Less than 24 Consecutive Hours, Continuous Positive Airway Pressure (ICD-10-PCS; 2019-02-05)
PROC: 0BJ08ZZ Inspection of Tracheobronchial Tree, Via Natural or Artificial Opening Endoscopic (ICD-10-PCS; 2019-02-05)
PROC: 0B9D8ZX Drainage of Right Middle Lung Lobe, Via Natural or Artificial Opening Endoscopic, Diagnostic (ICD-10-PCS; 2019-02-05)
PROC: 5A09357 Assistance with Respiratory Ventilation, Less than 24 Consecutive Hours, Continuous Positive Airway Pressure (ICD-10-PCS; 2019-02-06)
DX: I50.33 Acute on chronic diastolic (congestive) heart failure (principal); J18.9 Pneumonia, unspecified organism; J96.21 Acute and chronic respiratory failure with hypoxia; R65.20 Severe sepsis without septic shock; I42.9 Cardiomyopathy, unspecified; Z68.41 Body mass index [BMI] 40.0-44.9, adult; R65.10 Systemic inflammatory response syndrome (SIRS) of non-infectious origin without acute organ dysfunction; E87.6 Hypokalemia; E78.5 Hyperlipidemia, unspecified; G47.33 Obstructive sleep apnea (adult) (pediatric); K21.9 Gastro-esophageal reflux disease without esophagitis; E03.9 Hypothyroidism, unspecified; R59.0 Localized enlarged lymph nodes; E66.01 Morbid (severe) obesity due to excess calories; I27.20 Pulmonary hypertension, unspecified; E83.42 Hypomagnesemia; I11.0 Hypertensive heart disease with heart failure; T38.0X5A Adverse effect of glucocorticoids and synthetic analogues, initial encounter; D72.829 Elevated white blood cell count, unspecified; J98.09 Other diseases of bronchus, not elsewhere classified; Z90.710 Acquired absence of both cervix and uterus; Z88.2 Allergy status to sulfonamides; Z88.8 Allergy status to other drugs, medicaments and biological substances; Z91.018 Allergy to other foods; Z82.49 Family history of ischemic heart disease and other diseases of the circulatory system; Z83.3 Family history of diabetes mellitus; Z87.891 Personal history of nicotine dependence; Z83.49 Family history of other endocrine, nutritional and metabolic diseases
CPT/HCPCS: 10879; 15002; 27000; 62110; 62900; 70005

== ENCOUNTER → 2019-02-20 | Outpatient (CLI) | payer OTHER ==
[~2019-02-20] MED LIST changes: +AZITHROMYCIN 2250 MG PO; +BYSTOLIC20 MG PO; +CEFDINIR300 MG PO; +GLUCOSAMINE HC500 MG PO; +KEFLEX500 M1 PO; +POTASSIUM20 PO; +PREDNISONE 20 M20 M1 PO; +PREDNISONE 20 M20 MG PO; +PROBIOTIC1 EAC1 PO; +PROGESTERONE TROCHE SUBLING; +UNICOMPLEX M TA1 TA1 PO
--- NOTE | 2019-02-23 19:20 | SLE ---
[facility] [place] [address] POLYSOMNOGRAPHY STUDY Name: VALDEZ OLMEDO Room #: REG [facility]#: [id number] Admission: 02/20/19 ������������������ Attend Phys: Moises Verdugo MD Discharge: ������������������ Date of : 49 Report #: [id number] THIS REPORT FOR: //name// CC: Moises MURDOCK MD DATE OF SERVICE: 02/21/2019 ATTENDING PHYSICIAN: Dr. Harpreet Murdock. The patient is a 73-year-old who weighs 240 pounds with a BMI of 39.9. The patient has history of sleep apnea, for which she uses CPAP. However, due to recent hypersomnolence and under CPAP/BiPAP titration, study was requested by the patient's primary care physician. During the night study, the patient spent 451 minutes in bed and slept for 324 minutes with a sleep efficiency of 71%. Sleep latency was 24 minutes with a REM latency of 271 minutes. Overall, sleep architecture showed increased stage 1 and stage 2 sleep, normal N3 sleep and reduced REM sleep. EKG monitoring revealed a mean heart rate of 52 beats per minute with a maximum of 70 beats per minute, normal sinus rhythm, no sustained arrhythmias observed. PLMS were seen at an index of 17 per hour and 6.5 per hour caused EEG arousals. The patient was started on CPAP at a pressure of 14 cm of water and titrated up to 15 cm of water. However, due to intolerance to higher CPAP pressure and persistence of respiratory events, the patient was switched to BiPAP starting at 16/ and titrated up to . At the final pressure, the patient slept for 36.5 minutes. The patient had supine REM sleep. The patient had 8.5 minutes of REM sleep. The patient's AHI was reduced to 0 per hour and oxygen saturation remained above 93%. IMPRESSION: 1. Sleep apnea diagnosed previously. 2. Mild to moderate periodic limb movements of sleep. RECOMMENDATIONS: 1. BiPAP at completely eliminated the patient's sleep apnea and should be used on a nightly basis. 2. Follow up in 4-6 weeks to assess compliance with BiPAP and to document clinical improvement. 3. Weight loss is strongly advised. 4. 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 5. Cautioned regarding driving until symptoms of sleep apnea resolve with the [facility] [address] [place] [address] POLYSOMNOGRAPHY STUDY Name: VALDEZ OLMEDO Room #: REG [facility] [place]ylan#: [id number] Admission: 02/20/19 ������������������ Attend Phys: Moises Verdugo MD Discharge: ������������������ Date of : 49 Report #: [id number] use of BiPAP. 6. PLMS does not need to be treated unless the patient has symptoms of restless legs during the day. ��������������������������������������������� <ELECTRONICALLY SIGNED> ���������������������������������������� By: Moises Verdugo MD ��������������������������������������������� 02/23/19 1920 1714 1734 Moises Verdugo MD /aluren
== END ==
LOC: SLEEPLAB 10:17
DX: G47.33 Obstructive sleep apnea (adult) (pediatric) (principal); G47.61 Periodic limb movement disorder; Z68.39 Body mass index [BMI] 39.0-39.9, adult

== ENCOUNTER 2019-03-10 18:51 | Inpatient (IN) | payer OTHER ==
[~2019-03-10] VITALS: Ht 165.1 cm; Wt 111.6 kg
[2019-03-10 18:51] VITALS: BP 135/62
[~2019-03-10 18:51] MED LIST changes: -PREDNISONE 20 M20 M1 PO
[2019-03-10 19:26] LABS: HEMATOCRIT 44.3 % (37.0-47.0); HEMOGLOBIN 15.1 gm/dL (12.0-15.0); MCH 32.2 pg (26.0-34.0); MCV 94.7 fL (80.0-100.0); PLATELET COUNT 259 thou/uL (150-400); RBC 4.68 mil/uL (4.20-5.00); RDW 14.2 % (10.5-14.5); WBC 17.7 thou/uL (4.0-11.0)
[2019-03-10 19:32] LABS: ANION GAP 13 mmol/L (7-16); BUN 51 mg/dL (7-18); CALCIUM 9.8 mg/dL (8.5-10.1); CHLORIDE 99 mmol/L (98-107); CO2 22 mmol/L (21-32); CREATININE 1.6 mg/dL (0.6-1.0); GLUCOSE 170 mg/dL (74-106); POTASSIUM 5.4 mmol/L (3.5-5.1); SODIUM 134 mmol/L (136-145)
[2019-03-10 19:41] LABS: TROPONIN-I <0.06 ng/mL (<0.06)
[2019-03-10 19:52] LABS: URINE BILIRUBIN NEGATIVE (Negative); URINE BLOOD NEGATIVE (Negative); URINE CLARITY CLEAR; URINE COLOR YELLOW; URINE GLUCOSE-RANDOM* NEGATIVE (Negative); URINE KETONES NEGATIVE (Negative); URINE LEUKOCYTES-REFLEX NEGATIVE (Negative); URINE NITRITE-REFLEX NEGATIVE (Negative); URINE PROTEIN (DIPSTICK) NEGATIVE (Negative); URINE UROBILINOGEN 0.2 E.U./dl (0.2-1.0)
[2019-03-10 19:54] LABS: ABSOLUTE NEUTROPHILS 15.2 thou/uL (1.4-8.2); ANISOCYTOSIS 1+
[2019-03-10 21:08] VITALS: BP 135/62
[2019-03-10 21:39] VITALS: BP 136/70
[2019-03-10 22:17] VITALS: BP 161/79
[2019-03-11 04:53] VITALS: BP 111/65
--- NOTE | 2019-03-11 05:23 | NUR ---
Patient arrived to unit around 2200. Telemetry placed on patient. Dr. Man Maria called due to patient requesting to wear bipap as she wears it every night at home. Dr. Maria also asked if he wants to restart home meds, but said he will wait until the morning. Bipap order initiated and RT notified. Patient tolerated bipap well and slept through the night. Patient remains to have some fatigue, but walks well and is balanced/steady. Patient hasn't had a BM yet even though kayexelate was given in ER. Patient anxious for treatment to correct issues so she can go home soon as she was just admitted to the hospital about a month ago.
[2019-03-11 06:43] LABS: CALCIUM 8.9 mg/dL (8.5-10.1); CREATININE 1.1 mg/dL (0.6-1.0)
[2019-03-11 06:50] LABS: POTASSIUM 3.9 mmol/L (3.5-5.1)
[2019-03-11 08:20] VITALS: BP 140/75
--- NOTE | 2019-03-11 09:16 | EKG ---
[address] [place] [address] ELECTROCARDIOGRAM REPORT Name: VALDEZ OLMEDO Room #: 363-P ADM IN M.R.#: [id number] ������������������ Admission: 03/10/19 ������������������ Attend Phys: Charisse Ta Discharge: ������������������ Date of : 49 Report #: [id number] ����������������������������������������������������������������� [id number] THIS REPORT FOR: //name// [facility] ED Test Date: 2019-03-10 Test Time: 19:09:05 Pat Name: VALDEZ OLMEDO Department: Room: [facility] Gender: F Box Shook Patcher: : 1945 Requested By: Abhinav Berman Order Number: [id number] MD: Gordon Sy Measurements Intervals Harvey Rate: 80 P: 28 [place]: 160 QRS: 10 QRSD: 83 T: 55 QT: 355 QTc: 410 Interpretive Statements Sinus rhythm No significant abnormality Baseline wander in lead(s) V1,V5 Compared to ECG 02/03/2019 10:35:23 ST segment abnormality is no longer present Electronically Signed On 03-11-2019 9:16:02 CDT by Gordon Sy [email or web address] ��������������������������������������������� <ELECTRONICALLY SIGNED> ���������������������������������������� By: Gordon Sy MD, [facility] ��������������������������������������������� 03/11/19 0916 1909 1909 Gordon Sy MD, [facility] /EPI
[2019-03-11 12:15] VITALS: BP 134/67
--- NOTE | 2019-03-11 15:08 | NUR ---
INITIAL ASSESSMENT: Received consult for respiratory care-bipap needs. SW reviewed chart and spoke with nursing. Pt was admitted from home due to acute hyperkalemia. SW met with pt's spouse at bedside. Pt currently taking a shower. Introduced role of SW. Pt and spouse live at home. Prior to admission, pt was independent with ADLs. Pt does have home O2 in place provided by [facility]. Pt's spouse that pt checks her O2 and has not needed it on a continuous basis. Pt does have a bipap machine at home, that she just got last week. No hx of services or SNF/Rehab placement. PT eval ordered. Plan is for pt to discharge home when medically stable. SW is following to assist as needed with discharge planning.
[2019-03-11 16:00] VITALS: BP 127/67
--- NOTE | 2019-03-11 16:30 | NUR ---
ASSUMED CARE AT 0700, SHIFT ASSESSMENT DONE, MEDS GIVEN, VSS. DENIES ANY PAIN, NAUSEA, VOMITING. UP AD LING, RA. MEDINA ON TELE. TOOK A SHOWER THIS AFTERNOON. V FLUIDS DISCONTINUED. WILL CONTINUE TO ASSESS AND ASSIST WITH ADLs NEEDED.
[2019-03-11 20:25] VITALS: BP 129/69
[2019-03-12 05:07] VITALS: BP 126/70
[2019-03-12 05:37] LABS: CALCIUM 8.8 mg/dL (8.5-10.1); CREATININE 0.8 mg/dL (0.6-1.0)
[2019-03-12 05:45] LABS: POTASSIUM 4.5 mmol/L (3.5-5.1)
--- NOTE | 2019-03-12 06:25 | NUR ---
Pt. stated she slept better last night. Tolerating room air well then had BIPAP on while asleep. Up ad hailee in room with steady gait. Electrolytes WNL. Making progress towards care plan goals.
[2019-03-12 08:02] VITALS: BP 133/64
--- NOTE | 2019-03-12 11:05 | NUR ---
ASSUMED CARE AT 0700, SHIFT ASSESMENT DONE, MEDS GIVEN, VSS. DENIES PAIN, NAUSEA, VOMITING. UP AD LING. WILL CONTINUE TO ASSESS AND ASSIST WITH ADLs NEEDED.
[2019-03-12 11:27] VITALS: BP 126/64
--- NOTE | 2019-03-12 12:27 | H ---
[facility] [place] [address] HISTORY AND PHYSICAL Name: VALDEZ OLMEDO Room #: 363-P ADM IN M.R.#: [id number] Admission: 03/10/19 ������������������ Attend Phys: Charisse Ta Discharge: ������������������ Date of : 49 Report #: [id number] THIS REPORT FOR: //name// CC: Man Maria DATE OF SERVICE: 03/10/2019 CHIEF COMPLAINT: Weakness. HISTORY OF PRESENT ILLNESS: The patient is a 73-year-old female who presented to the Emergency Room with a 2-day history of weakness. She was hospitalized several weeks ago for about 10 days related to hypoxic respiratory failure. She was diagnosed and treated for pneumonia. There was some concern of an interstitial lung disease, but that workup continued as an outpatient without any definitive diagnosis. She initially was requiring high flow nasal cannula oxygen during that stay, but gradually weaned down to 1 liter by the time of discharge. She has been on high dose prednisone since discharge with a slow taper. She reports completing antibiotics several days to a week ago, but remains on prednisone 30 mg a day. Over the last 2 days, she has just felt very weak all over. She has had a hard time getting around her home. She does report feeling dizzy and lightheaded when she first gets up from bed. PAST MEDICAL HISTORY: Hypertension, lymphedema, morbid obesity, recent pneumonia with hypoxic respiratory failure. PAST SURGICAL HISTORY: She has had hysterectomy. FAMILY HISTORY: Noncontributory. SOCIAL HISTORY: No chronic alcohol or tobacco use. She is and lives at home. ALLERGIES: SULFA, GABAPENTIN, SOME FOOD INCLUDING NUTS. MEDICATIONS: Prednisone 30 mg, lisinopril 20 mg, Synthroid 25 mcg, Zoloft 50 mg, amlodipine 10 mg, Lasix 80 mg. REVIEW OF SYSTEMS: She denies headache, chest pain, shortness of breath, abdominal pain, nausea, vomiting, diarrhea, constipation. OBJECTIVE: VITAL SIGNS: Temperature 36.6, pulse 58, respirations 20, blood pressure 140/75, O2 sat 98% on room air. GENERAL: She is awake and alert, in no distress. HEAD AND NECK: Unremarkable. LUNGS: Clear. [facility] [address] [place] [address] HISTORY AND PHYSICAL Name: VALDEZ OLMEDO [place] Room #: 363-P [facility] IN [facility]#: [id number] Admission: 03/10/19 ������������������ Attend Phys: Charisse Ta Discharge: ������������������ Date of : 49 Report #: [id number] HEART: Regular. ABDOMEN: Soft, normoactive bowel sounds. EXTREMITIES: 1+ edema. NEUROLOGIC: Motor strength 4/5 and intact throughout. PERTINENT LABORATORY DATA: Includes creatinine 1.6, potassium 5.4. Hemoglobin was normal. Chest x-ray reveals patchy bilateral infiltrates that have resolved. ASSESSMENT: 1. Acute kidney injury. 2. Hyperkalemia. 3. Prerenal azotemia, likely medication effect. 4. Hypertension. 5. Recent pneumonia. 6. Recent hypoxic respiratory failure. PLAN: I will hold her diuretic and NAILA inhibitor for now. Her creatinine overnight has stabilized with gentle IV fluids. She is tolerating a diet, so I will discontinue fluids for now. Lovenox DVT prophylaxis until she is mobile. I will have Physical Therapy and Pulmonary see her as well. ��������������������������������������������� <ELECTRONICALLY SIGNED> ���������������������������������������� By: Nilay Lea MD ��������������������������������������������� 03/12/19 1227 1006 1034 Nilay Lea MD /nt
[2019-03-12] MEDS ORDERED: PREDNISONE 20 M20 M1 PO (12:46)
[2019-03-12 13:23] VITALS: BP 126/64
--- NOTE | 2019-03-12 13:43 | NUR ---
DISCHARGE ORDER RECEIVED, PERIPHERAL IV WAS TAKEN OUT. DISCHARGE PAPER WORK GIVEN. PATIENT HAS PREDNISONE PILLS AT HOME. LEFT WITH [facility] AT 1400
--- NOTE | 2019-03-12 14:09 | NUR ---
DISCHARGE NOTE: SW reviewed chart and spoke with nursing. Pt is medically stable to discharge home today. No discharge needs identified. Pt's spouse to provide transportation home. No additional SW needs identified at this time, but is available to assist should needs arise.
--- NOTE | 2019-03-13 09:36 | D ---
[facility] [place] [address] DISCHARGE SUMMARY Name: SHARAVALDEZ D Room #: 363-P [facility] IN M.R.#: [id number] Admission: 03/10/19 ������������������ Attend Phys: Charisse Ta Discharge: 03/12/19 ������������������ Date of : 49 Report #: [id number] THIS REPORT FOR: //name// CC: Man Maria DATE OF SERVICE: 03/12/2019 FINAL DIAGNOSES: 1. Acute kidney injury due to shock kidney. 2. Dehydration. 3. Hypertension. 4. Pulmonary fibrosis. HOSPITAL COURSE: The patient was admitted with weakness. She was found to have a mild acute kidney injury with creatinine about 1.5, BUN in the 40 range. I felt this was a shock kidney related to prerenal dehydration. Medicines were adjusted and discontinuation of Lasix and lisinopril seemed to resolve her issue with IV fluids overnight. She had no other interval complication. Dr. Becerra saw her in followup and continued prednisone 30 mg. By the time of discharge, she was walking 500 feet independently, was not requiring oxygen, had no further symptoms and her creatinine had stabilized. PHYSICAL EXAMINATION: GENERAL: On the day of discharge, she was awake and alert with stable vital signs including blood pressure 126/64, creatinine was 0.8, BUN 29. LUNGS: Clear. HEART: Regular. ABDOMEN: Soft, normoactive bowel sounds. EXTREMITIES: No edema. LABORATORY DATA: Potassium is 4.5. DISPOSITION: She is discharged to home with diet and activity as tolerated. Watch her weight and call if over 3-pound gain or call if elevated blood pressures above 150 consistently. DISCHARGE MEDICATIONS: She will resume all home medications except hold her Lasix and lisinopril for now. ��������������������������������������������� <ELECTRONICALLY SIGNED> ���������������������������������������� By: Nilay Lea MD ��������������������������������������������� 03/13/19 0936 1250 1910 Nilay Lea MD /nt
== END 2019-03-12 14:06 | disposition home or self-care (01) | DRG 640 ==
LOC: ER 18:51 → 3W 20:43 → EROBS 20:43 → 3W 21:41 → ENTRNSPT 03-12 13:46 → EDTRNSPTSTS 03-12 13:48 → 3W 03-12 14:06
PROVIDERS: Emergency Medicine; Internal Medicine Geriatric Medicine; ADMIT Internal Medicine
DX: E86.0 Dehydration (principal); N17.0 Acute kidney failure with tubular necrosis; I50.32 Chronic diastolic (congestive) heart failure; Z68.41 Body mass index [BMI] 40.0-44.9, adult; E87.5 Hyperkalemia; J84.10 Pulmonary fibrosis, unspecified; E66.01 Morbid (severe) obesity due to excess calories; I27.20 Pulmonary hypertension, unspecified; G47.33 Obstructive sleep apnea (adult) (pediatric); I11.0 Hypertensive heart disease with heart failure; E03.9 Hypothyroidism, unspecified; E86.9 Volume depletion, unspecified; Z90.710 Acquired absence of both cervix and uterus; Z79.899 Other long term (current) drug therapy; Z88.2 Allergy status to sulfonamides; Z88.8 Allergy status to other drugs, medicaments and biological substances; Z91.018 Allergy to other foods
CPT/HCPCS: 10879

== ENCOUNTER → 2019-04-02 | Outpatient (CLI) | payer OTHER ==
[~2019-04-02] MED LIST changes: +PREDNISONE 20 M20 M1 PO
== END ==
LOC: CAT 08:56
DX: I25.10 Atherosclerotic heart disease of native coronary artery without angina pectoris (principal)

== ENCOUNTER → 2019-07-08 | Outpatient (CLI) | payer OTHER | LOC: RAD 15:18 | DX: J98.09 Other diseases of bronchus, not elsewhere classified (principal) ==

== ENCOUNTER 2019-11-02 12:16 | Inpatient (IN) | payer OTHER ==
[~2019-11-02] VITALS: Ht 165.1 cm; Wt 115.7 kg
[2019-11-02 12:21] VITALS: BP 246/123
[2019-11-02 13:07] LABS: BASOPHILS 0.9 % (0.0-2.0); EOSINOPHILS 4.2 % (0.0-3.0); HEMATOCRIT 42.6 % (37.0-47.0); HEMOGLOBIN 14.4 gm/dL (12.0-15.0); LYMPHOCYTES 12.2 % (24.0-44.0); MCH 30.5 pg (26.0-34.0); MCHC 33.8 g/dL (28.0-37.0); MCV 90.3 fL (80.0-100.0); MONOCYTES 7.2 % (1.0-8.0); PLATELET COUNT 202 thou/uL (150-400); POLYS 75.5 % (36.0-66.0); RBC 4.71 mil/uL (4.20-5.00); RDW 14.8 % (10.5-14.5)
[2019-11-02 13:14] LABS: ANION GAP 9 mmol/L (7-16); BUN 9 mg/dL (7-18); CALCIUM 9.6 mg/dL (8.5-10.1); CHLORIDE 102 mmol/L (98-107); CO2 28 mmol/L (21-32); GLUCOSE 123 mg/dL (74-106); POTASSIUM 3.2 mmol/L (3.5-5.1); SODIUM 139 mmol/L (136-145)
[2019-11-02 13:25] LABS: ALBUMIN 4.1 g/dL (3.4-5.0); SGOT 22 U/L (15-37); SGPT 28 U/L (30-65); TOTAL BILIRUBIN 1.3 mg/dL (<0.1-1.0); TOTAL PROTEIN 8.1 g/dL (6.4-8.2); TROPONIN-I <0.06 ng/mL (<0.06)
[2019-11-02] MEDS ORDERED: PRINIVIL20 M1 PO (13:32)
[2019-11-02] MEDS ORDERED: LASIX 40 MG TAB40 MG PO (13:33)
[2019-11-02] MEDS ORDERED: POTASSIUM20 PO (13:33)
[2019-11-02 15:23] VITALS: BP 173/70
[2019-11-02 15:47] VITALS: BP 190/77
[2019-11-02 16:20] VITALS: BP 155/77
--- NOTE | 2019-11-02 16:34 | EKG ---
[address] [place] [address] ELECTROCARDIOGRAM REPORT Name: VALDEZ OLMEDO Room #: 353-P ADM IN M.R.#: [id number] Admission: 11/02/19 Attend Phys: Charisse Ta Discharge: Date of : 49 Report #: [id number] THIS REPORT FOR: //name// [facility] ED Test Date: 2019-11-02 Test Time: 12:34:49 Pat Name: VALDEZ OLMEDO Department: Room: [facility] Gender: F Drop Forger: : 1945 Requested By: Evelyn Monzon Order Number: [id number] MD: Pratik Joseph Measurements Intervals [place] Rate: 79 P: 28 [place]: 180 QRS: 34 QRSD: 85 T: 63 QT: 426 QTc: 489 Interpretive Statements Sinus rhythm Early transition Nonspecific ST-T wave changes Compared to ECG 03/10/2019 19:09:05 No significant changes Electronically Signed On 11-02-2019 16:33:55 [employer]IRAL WINDER by Pratik Joseph [email or web address] <ELECTRONICALLY SIGNED> By: Pratik Joseph MD 11/02/19 1633 1234 1234 Pratik Joseph MD /EPI
--- NOTE | 2019-11-02 18:47 | NUR ---
A/O, arrived around 1630. denied pain, no n/v. vss, afebrile. Doctor Candace called for diet order, could not get hold of Dr. Maria. Will pass it on to the night nurse.
[2019-11-02 19:36] VITALS: BP 169/73
[2019-11-03 00:02] VITALS: BP 150/58
[2019-11-03 03:52] VITALS: BP 145/67
--- NOTE | 2019-11-03 04:25 | NUR ---
ASSUMED CARE OF PT AT 1900HRS. PT IS AOX4 AND LETS NEEDS BE KNOWN. PT IS UP AD LING. PT IS ON RA. STEROID TREAMENT CONTINUED. PT COMPLAINED OF A HEADACHE AND PRN TYLENOL WAS GIVEN. NO COMPLAINTS OF SOA OR NAUSEA. PT WAS ABLE TO GET COMFORTABLE AND SLEEP PART OF THE SHIFT. PT IS STILL HYPERENSIVE OTHERWISE VSS. NO S/S OF ACUTE SISTRESS. WILL CONTINUE TO MONITOR.
[2019-11-03 07:30] VITALS: BP 175/71
--- NOTE | 2019-11-03 10:29 | H ---
[facility] [address] [address] HISTORY AND PHYSICAL Name: SHARAVALDEZ D Room #: 353-P ADM IN M.R.#: [id number] Admission: 11/02/19 Attend Phys: Charisse Ta Discharge: Date of : 49 Report #: [id number] THIS REPORT FOR: //name// CC: Man Billings DATE OF SERVICE: 11/02/2019 CHIEF COMPLAINT: Shortness of breath. HISTORY OF PRESENT ILLNESS: The patient is a 74-year-old female who came to the Emergency Room with a 1-2 day history of shortness of breath. She said for the last several days, she has had some sinus congestion and has been using egel-ret-jizdliz cold products; however, in the last day or two, she has had more chest congestion with a nonproductive cough. She has had some wheezing, has been using her albuterol inhaler more in the last couple of days, but without any relief. Today, she got up for her normal activities and was checking her oxygen saturation at home and was desatting into the low 80s even with low level activity. In the Emergency Room, even after treatment with steroids, nebulized treatments and Lasix, just moving up to the bedside commode she desaturated into the mid 80s. 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 She has had a history of pneumonia, history of CHF, hypertension. PAST SURGICAL HISTORY: She has had a hysterectomy, breast biopsies. FAMILY HISTORY: Noncontributory. SOCIAL HISTORY: She lives at home with her . No chronic alcohol or tobacco use. ALLERGIES: SULFA, GABAPENTIN AND FOOD INTOLERANCE. MEDICATIONS: Levoxyl 25, Zoloft 50, Prinivil 20, Lasix 80, potassium 20. REVIEW OF SYSTEMS: Denies headache, chest pain, abdominal pain, nausea, vomiting, diarrhea, constipation, dysuria, syncope. OBJECTIVE: VITAL SIGNS: Temperature 37.2, pulse 73, respiratory 29, blood pressure 173/70, O2 sat 87% on room air, 95% on 2 liters. GENERAL: She is awake, resting in bed, in no distress. HEAD AND NECK: Unremarkable. LUNGS: She has bilateral rhonchi and expiratory wheezing. [address] [address] HISTORY AND PHYSICAL Name: VALDEZ OLMEDO Room #: 353-P [facility] IN [facility].#: [id number] Admission: 11/02/19 Attend Phys: Charisse Ta Discharge: Date of : 49 Report #: [id number] HEART: Regular, no murmur. ABDOMEN: Soft, normoactive bowel sounds. EXTREMITIES: Trace edema. NEUROLOGIC: Motor strength 5/5 throughout. LABORATORY DATA: Unremarkable including normal troponin. BNP was only 750. Chest x-ray was clear. ASSESSMENT: 1. Chronic obstructive pulmonary disease exacerbation. 2. Acute bronchitis. 3. Pulmonary hypertension. 4. Acute hypoxic respiratory failure due to the above. 5. Hypertension. PLAN: She will be treated with steroids, nebulized treatments, empiric antibiotics, mucolytics, Lovenox DVT prophylaxis and her usual home medication. She has received extra IV Lasix through the ER. <ELECTRONICALLY SIGNED> By: Nilay Lea MD 11/03/19 1029 1607 1628 Nilay Lea MD /nt
[2019-11-03 15:39] VITALS: BP 190/88
--- NOTE | 2019-11-03 15:59 | NUR ---
INITIAL ASSESSMENT: SW reviewed chart and spoke with nursing. Pt was admitted from home due to bronchitis/hypoxia. Pt is currently on IV abx and IV steroids. SW met with pt and spouse at bedside. Introduced role of SW. Pt is alert/orientated x 4. Pt reports seh and her live at home. Prior to admission, pt was independent with ADLs. Pt has a bipap machine at home. No hx of services or post-acute placement. Pt's PCP is Dr. Cody Maria. Plan is for pt to discharge home when medically stable. SW is following to assist as needed with discharge planning.
--- NOTE | 2019-11-03 17:08 | NUR ---
assumed care of pt at 0700. pt aox4 in no acute distress. complaining of headache, associated with hypertension. physician notified of high bp - orders received. headache alleviated with tylenol. up ad hailee. coarse cough. otherwise room air. sinus on tele. pt progressing toward poc goals.
[2019-11-03 19:34] VITALS: BP 153/68
[2019-11-04 03:38] VITALS: BP 186/75
--- NOTE | 2019-11-04 04:26 | NUR ---
Pt. slept better last night though she woke up early. Tolerating room air well then slept with her BIPAP on. Woke up with headache. Tylenol given with good relief. Up ad hailee in room with steady gait. Making progress towards care plan goals.
[2019-11-04 06:05] VITALS: BP 181/69
[2019-11-04 07:34] VITALS: BP 174/79
--- NOTE | 2019-11-04 08:54 | NUR ---
Nutrition: Assessed due to BMI > 40. BMI 42.4 kg/m2 = class III obesity. Admit: bronchitis, hypoxia, HTN. Hx: HTN, pulmonary HTN. On a 2 g Na diet. Visited over breakfast. Pt follows a low salt diet at home, able to detect now if too much salt is present in food. UBW ranges 245-260# dating back to 2016. Highest weight at 263# this year on 02/18/19. Now 255# for slight 8#, 3% weight change. Eating great, 100% of meals yesterday. Used [employer] in the past. Discussed being mindful at meals, focused on how to make better food choices when traveling, healthy finds in perimeter vs inside aisles of store. Encouraged free OP RD services with grocery store tour at [facility] as pt familiar with. Pt had no further nutrition ed needs. Low nutrition risk.
[2019-11-04] MEDS ORDERED: CEFUROXIME500 MG PO (13:02)
[2019-11-04] MEDS ORDERED: NORVASC 2.5 MG2.5 M1 PO (13:02)
[2019-11-04] MEDS ORDERED: RAYOS5 MG PO (13:03)
[2019-11-04] MEDS ORDERED: MUCINEX600 MG PO (13:04)
[2019-11-04] MEDS ORDERED: VENTOLIN HFA 1818 GM INH (13:06)
[2019-11-04 13:15] VITALS: BP 174/79
--- NOTE | 2019-11-04 14:11 | NUR ---
progressing towards poc goals. dc to home now.
--- NOTE | 2019-11-04 14:18 | NUR ---
DISCHARGE NOTE: SW reviewed chart and spoke with nursing and attending physician. Pt is medically stable for discharge home today. Final discharge orders/summary completed. No discharge needs identified. Pt's spouse at bedside to provide transportation home. Case closed.
--- NOTE | 2019-11-06 10:49 | D ---
[facility] [place] [address] DISCHARGE SUMMARY Name: SAHRAVALDEZ D Room #: 353-P [facility] IN ..#: [id number] Admission: 11/02/19 Attend Phys: Charisse Ta Discharge: 11/04/19 Date of : 49 Report #: [id number] THIS REPORT FOR: //name// CC: Man Billings FINAL DIAGNOSES: 1. Acute bronchitis. 2. Chronic obstructive pulmonary disease exacerbation. 3. Pulmonary hypertension. 4. Acute hypoxic respiratory failure. 5. Hypertension. HOSPITAL COURSE: The patient was admitted with shortness of breath and hypoxia with O2 sats in the mid to low 80s on room air. She received supplemental oxygen overnight and was treated for bronchitis and COPD exacerbation with nebulized treatments, antibiotics and steroids. The following day, she was much improved and oxygen was weaned off. Her blood pressure was elevated and amlodipine was added. Her other home medications were continued. She can continue to receive nebulized treatments, mucolytics, antibiotics and steroids. On the second hospital day, she was improving and was clinically stable for discharge home. She was not requiring supplemental oxygen and O2 sats were 94% on room air. PHYSICAL EXAMINATION: VITAL SIGNS: On the day of discharge, she was stable with elevated blood pressures in the 160/80 range, but afebrile. LUNGS: Had some expiratory wheezing. HEART: Regular. ABDOMEN: Soft, normoactive bowel sounds. EXTREMITIES: No edema. DISPOSITION: She is discharged to home with low sodium diet, activity as tolerated, resume all home medications plus amlodipine 10 mg a day, prednisone burst and taper for the next 10 days, Ceftin for the next week, Mucinex and albuterol inhaler. Follow up with Dr. Maria in 1 week. <ELECTRONICALLY SIGNED> By: Nilay Lea MD 11/06/19 1049 1318 1601 Nilay Lea MD /nt
== END 2019-11-04 14:12 | disposition home or self-care (01) | DRG 189 ==
LOC: ER 12:16 → 3W 14:49 → EROBS 14:49 → 3W 16:00
PROVIDERS: Emergency Medicine; ADMIT Internal Medicine
PROC: 5A09357 Assistance with Respiratory Ventilation, Less than 24 Consecutive Hours, Continuous Positive Airway Pressure (ICD-10-PCS; principal; 2019-11-02)
DX: J96.01 Acute respiratory failure with hypoxia (principal); J44.1 Chronic obstructive pulmonary disease with (acute) exacerbation; J44.0 Chronic obstructive pulmonary disease with (acute) lower respiratory infection; J20.9 Acute bronchitis, unspecified; I50.9 Heart failure, unspecified; I11.0 Hypertensive heart disease with heart failure; I27.20 Pulmonary hypertension, unspecified; Z90.710 Acquired absence of both cervix and uterus; Z87.01 Personal history of pneumonia (recurrent); Z98.42 Cataract extraction status, left eye; Z98.41 Cataract extraction status, right eye; Z79.899 Other long term (current) drug therapy; Z88.2 Allergy status to sulfonamides; Z88.8 Allergy status to other drugs, medicaments and biological substances; Z87.891 Personal history of nicotine dependence; Z99.81 Dependence on supplemental oxygen
CPT/HCPCS: 10879

== ENCOUNTER → 2019-12-12 | Outpatient (CLI) | payer OTHER ==
[~2019-12-12] MED LIST changes: +CEFUROXIME500 MG PO; +LASIX 40 MG TAB40 MG PO; +MUCINEX600 MG PO; +NORVASC 2.5 MG2.5 M1 PO; +PRINIVIL20 M1 PO; +RAYOS5 MG PO; +VENTOLIN HFA 1818 GM INH
== END ==
LOC: SJCVC 11:44
DX: I10 Essential (primary) hypertension (principal); E78.5 Hyperlipidemia, unspecified; E66.01 Morbid (severe) obesity due to excess calories; G47.33 Obstructive sleep apnea (adult) (pediatric); R94.31 Abnormal electrocardiogram [ECG] [EKG]; Z79.899 Other long term (current) drug therapy; Z90.710 Acquired absence of both cervix and uterus; Z82.49 Family history of ischemic heart disease and other diseases of the circulatory system

== ENCOUNTER → 2020-06-11 | Outpatient (CLI) | payer OTHER | LOC: SJCVC 11:12 | PROVIDERS: ATTEND Internal Medicine | DX: R94.31 Abnormal electrocardiogram [ECG] [EKG] (principal); I10 Essential (primary) hypertension; E78.5 Hyperlipidemia, unspecified; E66.01 Morbid (severe) obesity due to excess calories; Z79.899 Other long term (current) drug therapy; Z87.891 Personal history of nicotine dependence ==

== ENCOUNTER → 2020-12-16 | Outpatient (CLI) | payer OTHER | LOC: SJCVC 10:01 | PROVIDERS: ATTEND Internal Medicine | DX: I10 Essential (primary) hypertension (principal); I35.0 Nonrheumatic aortic (valve) stenosis; G47.33 Obstructive sleep apnea (adult) (pediatric); Z90.710 Acquired absence of both cervix and uterus; Z88.8 Allergy status to other drugs, medicaments and biological substances; Z79.899 Other long term (current) drug therapy; Z87.891 Personal history of nicotine dependence; Z82.49 Family history of ischemic heart disease and other diseases of the circulatory system ==

== ENCOUNTER → 2020-12-22 | Outpatient (CLI) | payer OTHER | LOC: SJCVCIMAG 08:46 | PROVIDERS: ATTEND Internal Medicine | DX: I35.8 Other nonrheumatic aortic valve disorders (principal); I10 Essential (primary) hypertension; G47.33 Obstructive sleep apnea (adult) (pediatric); Z79.899 Other long term (current) drug therapy; Z87.891 Personal history of nicotine dependence ==

== ENCOUNTER → 2021-06-21 | Outpatient (CLI) | payer OTHER | LOC: SJCVC 09:42 | PROVIDERS: ATTEND Internal Medicine | DX: I10 Essential (primary) hypertension (principal); I35.0 Nonrheumatic aortic (valve) stenosis; E78.5 Hyperlipidemia, unspecified; G47.33 Obstructive sleep apnea (adult) (pediatric); Z88.2 Allergy status to sulfonamides; Z88.1 Allergy status to other antibiotic agents; Z79.899 Other long term (current) drug therapy; Z79.891 Long term (current) use of opiate analgesic; Z87.891 Personal history of nicotine dependence ==

== ENCOUNTER 2021-10-24 11:49 | Emergency (ER) | payer OTHER ==
[~2021-10-24] VITALS: Ht 165.1 cm; Wt 108.9 kg
[2021-10-24 12:15] LABS: HEMATOCRIT 43.6 % (37.0-47.0); HEMOGLOBIN 14.4 gm/dL (12.0-15.0); MCH 30.9 pg (26.0-34.0); MCHC 33.1 g/dL (28.0-37.0); MCV 93.3 fL (80.0-100.0); PLATELET COUNT 253 thou/uL (150-400); RBC 4.67 mil/uL (4.20-5.00); RDW 13.3 % (10.5-14.5); WBC 19.9 thou/uL (4.0-11.0)
[2021-10-24] MEDS ORDERED: CORICIDIN HBP1 EAC5 PO (12:20)
[2021-10-24 12:25] LABS: CALCIUM 9.2 mg/dL (8.5-10.1); CREATININE 1.1 mg/dL (0.6-1.0); POTASSIUM 3.7 mmol/L (3.5-5.1)
[2021-10-24 12:35] LABS: ALBUMIN 3.1 g/dL (3.4-5.0); TOTAL BILIRUBIN 0.7 mg/dL (0.2-1.0); TOTAL PROTEIN 7.5 g/dL (6.4-8.2)
[2021-10-24 12:46] LABS: URINE BILIRUBIN NEGATIVE (Negative); URINE BLOOD 1+ (Negative); URINE CLARITY CLEAR; URINE COLOR YELLOW; URINE GLUCOSE-RANDOM* NEGATIVE (Negative); URINE KETONES NEGATIVE (Negative); URINE NITRITE-REFLEX NEGATIVE (Negative); URINE PROTEIN (DIPSTICK) NEGATIVE (Negative); URINE UROBILINOGEN 0.2 E.U./dl (0.2-1.0)
[2021-10-24 12:52] LABS: URINE LEUKOCYTES-REFLEX 1+ (Negative)
--- NOTE | 2021-10-24 12:54 | EKG ---
[place] [address] [facility] [employer] [place] [address] ELECTROCARDIOGRAM REPORT Name: VALDEZ OLMEDO Room #: [facility]#: [id number] Admission: 10/24/21 Attend Phys: Discharge: Date of : 49 Report #: [id number] [facility] ED Test Date: 2021-10-24 Test Time: 11:58:36 Pat Name: VALDEZ OLMEDO Department: Room: Gender: F Concrete Puddler: CHLOE : 1945 Requested By: Merary Joyce Order Number: [id number] MD: German Aguero Measurements Intervals [place] Rate: 73 P: 30 [place]: 167 QRS: 11 QRSD: 90 T: 42 QT: 398 QTc: 439 Interpretive Statements Sinus rhythm Low voltage, precordial leads Baseline wander in lead(s) V4 Compared to ECG 11/02/2019 12:34:49 Low QRS voltage now present ST (T wave) deviation no longer present Electronically Signed On 10-24-2021 12:54:38 [employer] TREATING TANK OPERATOR by German Aguero [email or web address] <ELECTRONICALLY SIGNED> By: German Aguero MD, [facility] 10/24/21 1254 1158 1158 German Aguero MD, FAC /EPI
[2021-10-24 13:05] LABS: SQUAMOUS >10 Many /LPF (0-3)
[2021-10-24 13:06] LABS: URINE WBC-REFLEX >25 Many /HPF (0-5)
[2021-10-24 13:07] LABS: BACTERIA-REFLEX 1-9 Few /HPF (None Seen); CASTS None Seen /LPF (None Seen); CRYSTALS None Seen /LPF (None Seen); URINE RBC 3-10 Few /HPF (NONE SEEN)
[2021-10-24 13:21] LABS: ABSOLUTE NEUTROPHILS 15.7 thou/uL (1.4-8.2)
[2021-10-24 13:22] LABS: ANISOCYTOSIS 1+; POIKILOCYTOSIS 1+
[2021-10-24] MEDS ORDERED: CEFPODOXIME PR200 M1 PO (15:49)
[2021-10-24 16:04] VITALS: BP 145/59
== END 2021-10-24 16:05 | disposition home or self-care (01) ==
LOC: ER 11:49
PROVIDERS: Nurse Practitioner; Student in an Organized Health Care Education/Training Program
DX: N39.0 Urinary tract infection, site not specified (principal); Z20.822 Contact with and (suspected) exposure to COVID-19; I10 Essential (primary) hypertension; Z79.899 Other long term (current) drug therapy; Z90.710 Acquired absence of both cervix and uterus; Z88.2 Allergy status to sulfonamides; Z88.8 Allergy status to other drugs, medicaments and biological substances; Z87.891 Personal history of nicotine dependence